=== PATIENT | male | born 1965 | race Caucasian/White ===

== ENCOUNTER 2017-12-12 04:55 | Inpatient (IN) | payer OTHER ==
[2017-12-12] VITALS (13 sets, daily range): BP systolic 117–156; BP diastolic 73–107
[~2017-12-12] VITALS: Ht 176.5 cm; Wt 76.7 kg
[2017-12-12 05:27] LABS: BASOPHILS % (AUTO) 0.8 % (0-1); EOSINOPHILS % (AUTO) 0.4 % (0-6); HEMATOCRIT 45.6 % (42.0-52.0); LYMPHOCYTES # (AUTO) 0.7 X10'3 (1.1-4.8); LYMPHOCYTES % (AUTO) 12.8 % (21-51); MEAN CORPUSCULAR HEMOGLOBIN 31.4 PG (27.0-31.0); MEAN CORPUSCULAR HGB CONC 32.8 % (33.0-36.5); MEAN CORPUSCULAR VOLUME 95.6 FL (78-98); MEAN PLATELET VOLUME 8.1 FL (7.4-10.4); MONOCYTES # (AUTO) 0.4 X10'3 (0-0.9); MONOCYTES % (AUTO) 7.9 % (2-12); NEUTROPHILS # (AUTO) 4.5 X10'3 (1.8-7.7); NEUTROPHILS % (AUTO) 78.1 % (42-75); PLATELET COUNT 155 X10'3 (140-440); RED BLOOD COUNT 4.77 X10'6 (4.70-6.10); WHITE BLOOD COUNT 5.6 X10'3 (4.5-11.0)
[2017-12-12 05:37] LABS: ALANINE AMINOTRANSFERASE 49 U/L (12-78); ALBUMIN 4.3 G/DL (3.4-5.0); ALBUMIN/GLOBULIN RATIO 1.2 (1.1-1.5); ALKALINE PHOSPHATASE 90 IU/L (46-116); ANION GAP 11 (8-16); ASPARTATE AMINO TRANSFERASE 58 U/L (10-37); BILIRUBIN,TOTAL 0.7 MG/DL (0.1-1.0); BLOOD UREA NITROGEN 11 MG/DL (7-18); BUN/CREATININE RATIO 10.8 (5.4-32.0); CALCIUM 8.8 MG/DL (8.5-10.1); CHLORIDE 100 MMOL/L (99-107); CREATININE 1.02 MG/DL (0.60-1.10); GLUCOSE 117 MG/DL (70-104); POTASSIUM 3.7 MMOL/L (3.5-5.1); SODIUM 138 MMOL/L (135-145); TOTAL CARBON DIOXIDE 27.5 MMOL/L (24-32); TOTAL PROTEIN 7.8 G/DL (6.4-8.2); eGFR 76 ML/MIN
[2017-12-12 05:40] LABS: PARTIAL THROMBOPLASTIN TIME 30 SECONDS (22-32); PROTHROMBIN TIME 10.5 SECONDS (9.0-12.0)
[2017-12-12] MEDS ORDERED: heparin 10,000 units/1 ML INJ IV ONE (05:45)
[2017-12-12] MEDS ORDERED: SULF500T PO (06:42)
[2017-12-12] MEDS ORDERED: MERC50TA16 CORPAK (06:42)
[2017-12-12] MEDS ORDERED: OMEP40CA37 PO (06:42)
[2017-12-12] MEDS ORDERED: morphine 4 MG/ML inj SYRINge IV PRN (06:55)
[2017-12-12] MEDS ORDERED: acetaminophen 325mg tablet PO PRN (06:55)
[2017-12-12] MEDS ORDERED: bisacodyl 10mg suppository rectal RC PRN (06:55)
[2017-12-12 07:10] LABS: TROPONIN I 12.98 NG/ML (0.0-0.05)
[2017-12-12] MEDS ORDERED: heparin, porcine/D5W 25,000 units/250ml premix IV ONE (08:00)
[2017-12-12] MEDS ORDERED: heparin 10,000 units/1 ML INJ ONE (08:00)
[2017-12-12] MEDS ORDERED: nitroGLYCERIN 0.4mg SUBLingual tab SL ONE (08:00)
[2017-12-12] MEDS: tirofiban 5mg in NS 100mL 100 ML IV SCH ×2 (08:26→13:41)
[2017-12-12] MEDS: metoprolol tartrate 25mg tablet PO SCH ×2 (08:26→20:00)
[2017-12-12] MEDS: pantoprazole 40mg Tablet.DR PO SCH (08:27)
[2017-12-12 08:30] LABS: CHOL/HDL RATIO 4.4 (0.00-4.99); CHOLESTEROL 207 MG/DL (0-200); HDL CHOLESTEROL 47 MG/DL (35-60); LDL CHOLESTEROL 153 MG/DL (50-100); TRIGLYCERIDES 52 MG/DL (20-135)
[2017-12-12] MEDS: nitroGLYCERIN 0.4mg SUBLingual tab SL PRN ×3 (08:42→13:38)
[2017-12-12] MEDS ORDERED: midazolam 2 mg/2 ml injection ONE (13:48)
[2017-12-12] MEDS ORDERED: iohexol 350 MG/1 ML 200ml bottle ONE (13:49)
[2017-12-12] MEDS ORDERED: heparin 1,000unit/ml 10ml vial 10 ML ONE (13:49)
[2017-12-12] MEDS ORDERED: fentaNYL/PF 50MCG/1 ML 2ML syringe ONE (13:49)
[2017-12-12] MEDS ORDERED: LIDOcaine 1% w/EPI 1:100,000 30ml vial (MDV) ONE (13:49)
[2017-12-12] MEDS ORDERED: amLODIPine 5mg tablet PO ONE (15:45)
[2017-12-12] MEDS ORDERED: ondansetron/PF 4mg/2ml inj IV PRN (16:00)
[2017-12-12] MEDS ORDERED: proCHLORperazine 10 MG/2 ml inj IV PRN (16:00)
[2017-12-12] MEDS ORDERED: OXAZEpam 15mg capsule PO PRN (16:00)
[2017-12-12 16:58] LABS: BASOPHILS % (AUTO) 0.2 % (0-1); EOSINOPHILS % (AUTO) 0.1 % (0-6); HEMATOCRIT 44.2 % (42.0-52.0); HEMOGLOBIN 15.4 g/dl (14.0-17.9); LYMPHOCYTES # (AUTO) 0.8 X10'3 (1.1-4.8); LYMPHOCYTES % (AUTO) 8.7 % (21-51); MEAN CORPUSCULAR HEMOGLOBIN 32.6 PG (27.0-31.0); MEAN CORPUSCULAR HGB CONC 34.8 % (33.0-36.5); MEAN CORPUSCULAR VOLUME 93.9 FL (78-98); MEAN PLATELET VOLUME 8.1 FL (7.4-10.4); MONOCYTES # (AUTO) 0.9 X10'3 (0-0.9); MONOCYTES % (AUTO) 9.9 % (2-12); NEUTROPHILS # (AUTO) 7.4 X10'3 (1.8-7.7); NEUTROPHILS % (AUTO) 81.1 % (42-75); PLATELET COUNT 173 X10'3 (140-440); RED CELL DISTRIBUTION WIDTH 13.9 % (11.5-14.5); WHITE BLOOD COUNT 9.2 X10'3 (4.5-11.0)
[2017-12-12] MEDS: sulfaSALAZINE 500 MG tablet PO SCH (19:23)
[2017-12-12] MEDS: atorvastatin 20mg tablet PO SCH (20:31)
[2017-12-12] MEDS: heparin 10,000 units/1 ML INJ IV PRN (23:13)
[2017-12-13 03:00] VITALS: BP 122/79
[2017-12-13 04:43] LABS: BASOPHILS % (AUTO) 0.4 % (0-1); EOSINOPHILS % (AUTO) 0.7 % (0-6); HEMATOCRIT 41.9 % (42.0-52.0); HEMOGLOBIN 14.5 g/dl (14.0-17.9); LYMPHOCYTES # (AUTO) 1.3 X10'3 (1.1-4.8); LYMPHOCYTES % (AUTO) 20.1 % (21-51); MEAN CORPUSCULAR HEMOGLOBIN 32.5 PG (27.0-31.0); MEAN CORPUSCULAR HGB CONC 34.7 % (33.0-36.5); MEAN CORPUSCULAR VOLUME 93.6 FL (78-98); MEAN PLATELET VOLUME 7.9 FL (7.4-10.4); MONOCYTES # (AUTO) 0.8 X10'3 (0-0.9); MONOCYTES % (AUTO) 12.7 % (2-12); NEUTROPHILS # (AUTO) 4.2 X10'3 (1.8-7.7); NEUTROPHILS % (AUTO) 66.1 % (42-75); PLATELET COUNT 157 X10'3 (140-440); RED BLOOD COUNT 4.47 X10'6 (4.70-6.10); RED CELL DISTRIBUTION WIDTH 13.7 % (11.5-14.5); WHITE BLOOD COUNT 6.3 X10'3 (4.5-11.0)
[2017-12-13 05:04] LABS: ALANINE AMINOTRANSFERASE 64 U/L (12-78); ALBUMIN 3.8 G/DL (3.4-5.0); ALBUMIN/GLOBULIN RATIO 1.1 (1.1-1.5); ALKALINE PHOSPHATASE 74 IU/L (46-116); ANION GAP 8 (8-16); ASPARTATE AMINO TRANSFERASE 177 U/L (10-37); BILIRUBIN,TOTAL 0.6 MG/DL (0.1-1.0); BLOOD UREA NITROGEN 13 MG/DL (7-18); BUN/CREATININE RATIO 13.7 (5.4-32.0); CALCIUM 8.5 MG/DL (8.5-10.1); CHLORIDE 104 MMOL/L (99-107); CREATININE 0.95 MG/DL (0.60-1.10); GLUCOSE 102 MG/DL (70-104); MAGNESIUM 2.1 MG/DL (1.5-2.4); SODIUM 139 MMOL/L (135-145); TOTAL PROTEIN 7.2 G/DL (6.4-8.2); eGFR 83 ML/MIN
[2017-12-13 07:00] VITALS: BP 98/59
[2017-12-13] MEDS: aspirin 81mg tab.chew PO SCH (07:46)
[2017-12-13] MEDS: pantoprazole 40mg Tablet.DR PO SCH (07:46)
[2017-12-13] MEDS: sulfaSALAZINE 500 MG tablet PO SCH ×2 (07:46→22:08)
[2017-12-13] MEDS: metoprolol tartrate 25mg tablet PO SCH (07:50)
[2017-12-13 11:00] VITALS: BP 102/70
[2017-12-13 15:00] VITALS: BP 112/92
[2017-12-13 19:00] VITALS: BP 115/73
[2017-12-13] MEDS ORDERED: metoprolol tartrate 25mg tablet PO SCH (20:00)
[2017-12-13] MEDS: atorvastatin 20mg tablet PO SCH (22:08)
[2017-12-13] MEDS: metoprolol tartrate 12.5mg (1/2 tablet) PO SCH (22:09)
[2017-12-13 23:00] VITALS: BP 111/73
[2017-12-14 03:00] VITALS: BP 103/74
[2017-12-14 05:54] LABS: BASOPHILS % (AUTO) 0.4 % (0-1); EOSINOPHILS % (AUTO) 0.3 % (0-6); HEMATOCRIT 42.6 % (42.0-52.0); HEMOGLOBIN 14.7 g/dl (14.0-17.9); LYMPHOCYTES # (AUTO) 1.1 X10'3 (1.1-4.8); MEAN CORPUSCULAR HEMOGLOBIN 32.5 PG (27.0-31.0); MEAN CORPUSCULAR HGB CONC 34.5 % (33.0-36.5); MEAN CORPUSCULAR VOLUME 94.2 FL (78-98); MEAN PLATELET VOLUME 7.7 FL (7.4-10.4); MONOCYTES # (AUTO) 0.8 X10'3 (0-0.9); NEUTROPHILS # (AUTO) 3.3 X10'3 (1.8-7.7); NEUTROPHILS % (AUTO) 63.3 % (42-75); PLATELET COUNT 142 X10'3 (140-440); RED BLOOD COUNT 4.53 X10'6 (4.70-6.10); RED CELL DISTRIBUTION WIDTH 13.8 % (11.5-14.5); WHITE BLOOD COUNT 5.2 X10'3 (4.5-11.0)
[2017-12-14 06:06] LABS: ALANINE AMINOTRANSFERASE 51 U/L (12-78); ALBUMIN 3.7 G/DL (3.4-5.0); ALBUMIN/GLOBULIN RATIO 1.1 (1.1-1.5); ALKALINE PHOSPHATASE 70 IU/L (46-116); ANION GAP 8 (8-16); ASPARTATE AMINO TRANSFERASE 79 U/L (10-37); BILIRUBIN,TOTAL 0.6 MG/DL (0.1-1.0); BLOOD UREA NITROGEN 14 MG/DL (7-18); BUN/CREATININE RATIO 13.6 (5.4-32.0); CALCIUM 8.9 MG/DL (8.5-10.1); CHLORIDE 104 MMOL/L (99-107); CREATININE 1.03 MG/DL (0.60-1.10); GLUCOSE 90 MG/DL (70-104); SODIUM 140 MMOL/L (135-145); TOTAL PROTEIN 7.2 G/DL (6.4-8.2); eGFR 76 ML/MIN
[2017-12-14 06:07] LABS: POTASSIUM 3.8 MMOL/L (3.5-5.1)
[2017-12-14 06:08] LABS: MAGNESIUM 2.1 MG/DL (1.5-2.4)
[2017-12-14 06:11] LABS: TROPONIN I 14.79 NG/ML (0.0-0.05)
[2017-12-14 06:49] VITALS: BP 116/76
[2017-12-14] MEDS: metoprolol tartrate 12.5mg (1/2 tablet) PO SCH ×2 (08:00→19:42)
[2017-12-14] MEDS: aspirin 81mg tab.chew PO SCH (08:17)
[2017-12-14] MEDS: pantoprazole 40mg Tablet.DR PO SCH (08:17)
[2017-12-14] MEDS: sulfaSALAZINE 500 MG tablet PO SCH ×2 (08:17→19:35)
[2017-12-14 11:00] VITALS: BP 123/78
[2017-12-14 15:00] VITALS: BP 112/75
[2017-12-14 19:00] VITALS: BP 122/76
[2017-12-14] MEDS: atorvastatin 20mg tablet PO SCH (21:21)
[2017-12-14 23:00] VITALS: BP 122/84
[2017-12-15] MEDS: heparin 10,000 units/1 ML INJ IV PRN (00:39)
[2017-12-15 03:00] VITALS: BP 142/87
[2017-12-15 07:00] VITALS: BP 136/80
[2017-12-15 07:17] LABS: BASOPHILS % (AUTO) 0.4 % (0-1); EOSINOPHILS # (AUTO) 0.1 X10'3 (0-0.9); HEMOGLOBIN 14.6 g/dl (14.0-17.9); LYMPHOCYTES # (AUTO) 1.1 X10'3 (1.1-4.8); LYMPHOCYTES % (AUTO) 20.8 % (21-51); MEAN CORPUSCULAR HEMOGLOBIN 32.6 PG (27.0-31.0); MEAN CORPUSCULAR HGB CONC 34.7 % (33.0-36.5); MEAN PLATELET VOLUME 7.7 FL (7.4-10.4); MONOCYTES # (AUTO) 0.7 X10'3 (0-0.9); MONOCYTES % (AUTO) 13.5 % (2-12); NEUTROPHILS # (AUTO) 3.4 X10'3 (1.8-7.7); NEUTROPHILS % (AUTO) 64.3 % (42-75); PLATELET COUNT 155 X10'3 (140-440); RED BLOOD COUNT 4.47 X10'6 (4.70-6.10); WHITE BLOOD COUNT 5.2 X10'3 (4.5-11.0)
[2017-12-15 07:32] LABS: ALANINE AMINOTRANSFERASE 51 U/L (12-78); ALBUMIN 3.8 G/DL (3.4-5.0); ALBUMIN/GLOBULIN RATIO 1.1 (1.1-1.5); ALKALINE PHOSPHATASE 71 IU/L (46-116); ANION GAP 8 (8-16); ASPARTATE AMINO TRANSFERASE 54 U/L (10-37); BILIRUBIN,TOTAL 0.6 MG/DL (0.1-1.0); BLOOD UREA NITROGEN 11 MG/DL (7-18); BUN/CREATININE RATIO 11.2 (5.4-32.0); CALCIUM 9.5 MG/DL (8.5-10.1); CHLORIDE 102 MMOL/L (99-107); CREATININE 0.98 MG/DL (0.60-1.10); GLUCOSE 102 MG/DL (70-104); SODIUM 138 MMOL/L (135-145); TOTAL CARBON DIOXIDE 27.6 MMOL/L (24-32); TOTAL PROTEIN 7.4 G/DL (6.4-8.2); eGFR 80 ML/MIN
[2017-12-15 07:53] LABS: TROPONIN I 10.49 NG/ML (0.0-0.05)
[2017-12-15] MEDS: metoprolol tartrate 12.5mg (1/2 tablet) PO SCH ×2 (08:00→20:00)
[2017-12-15] MEDS: pantoprazole 40mg Tablet.DR PO SCH (08:31)
[2017-12-15] MEDS: aspirin 81mg tab.chew PO SCH (08:31)
[2017-12-15] MEDS: sulfaSALAZINE 500 MG tablet PO SCH ×2 (08:32→19:46)
[2017-12-15] MEDS ORDERED: dextrose 50%-water 50ml dispensing syringe IV PRN (09:25)
[2017-12-15] MEDS ORDERED: MESSAGE TO NURSING PO ONE ×5 (09:25→10:00)
[2017-12-15 10:09] LABS: PARTIAL THROMBOPLASTIN TIME 36 SECONDS (22-32); PROTHROMBIN TIME 10.3 SECONDS (9.0-12.0)
[2017-12-15 10:36] LABS: ABG HCO3 27.8 mmol/L (22.0-26.0); ABG OXYGEN SATURATION 95.6 % (95-98); ABG PH (T) 7.428 (7.350-7.450); ALLEN'S TEST Positive; FCOHb 0.8 % (0.5-1.5); FMetHb 0.5 % (0.3-1.12); FO2Hb 94.4 % (94-100); TOTAL HEMOGLOBIN 15.2 G/dl (14.0-18.0)
[2017-12-15] MEDS ORDERED: ringers solution, lacted 1,000 ML IV ONE (11:18)
[2017-12-15] MEDS: insulin Lispro (HumaLOG) vial - multi-dose SQ SCH ×2 (12:35→18:00)
[2017-12-15 15:00] VITALS: BP 138/87
[2017-12-15 19:00] VITALS: BP 134/84
[2017-12-15] MEDS: lactobacillus rhamnosus 10,000 MMU CELLS/CAPSULE PO SCH (19:46)
[2017-12-15] MEDS: mupirocin 2% nasal ointment 1gm UD NS SCH (19:53)
[2017-12-15] MEDS: atorvastatin 20mg tablet PO SCH (20:20)
[2017-12-15 23:00] VITALS: BP 130/87
[2017-12-16] VITALS (14 sets, daily range): BP systolic 100–142; BP diastolic 61–87
[2017-12-16] MEDS ORDERED: vancomycin/NS 1 GM ADD-VANTAGE 250 ML IV ONE (06:00)
[2017-12-16] MEDS ORDERED: famotidine 20mg tablet PO ONE (06:00)
[2017-12-16] MEDS ORDERED: LORazepam 2 mg/ml vial IV ONE (06:00)
[2017-12-16 06:16] LABS: BASOPHILS % (AUTO) 0.4 % (0-1); EOSINOPHILS % (AUTO) 0.9 % (0-6); HEMATOCRIT 42.4 % (42.0-52.0); HEMOGLOBIN 14.8 g/dl (14.0-17.9); LYMPHOCYTES # (AUTO) 0.9 X10'3 (1.1-4.8); LYMPHOCYTES % (AUTO) 21.8 % (21-51); MEAN CORPUSCULAR HEMOGLOBIN 32.7 PG (27.0-31.0); MEAN CORPUSCULAR HGB CONC 34.8 % (33.0-36.5); MONOCYTES # (AUTO) 0.6 X10'3 (0-0.9); MONOCYTES % (AUTO) 14.8 % (2-12); NEUTROPHILS # (AUTO) 2.7 X10'3 (1.8-7.7); NEUTROPHILS % (AUTO) 62.1 % (42-75); PLATELET COUNT 160 X10'3 (140-440); RED BLOOD COUNT 4.51 X10'6 (4.70-6.10); RED CELL DISTRIBUTION WIDTH 14.1 % (11.5-14.5); WHITE BLOOD COUNT 4.3 X10'3 (4.5-11.0)
[2017-12-16 06:20] LABS: PROTHROMBIN TIME 10.4 SECONDS (9.0-12.0)
[2017-12-16 06:29] LABS: ANION GAP 9 (8-16); BLOOD UREA NITROGEN 11 MG/DL (7-18); CHLORIDE 101 MMOL/L (99-107); CREATININE 1.03 MG/DL (0.60-1.10); GLUCOSE 111 MG/DL (70-104); SODIUM 137 MMOL/L (135-145); TOTAL CARBON DIOXIDE 27.4 MMOL/L (24-32)
[2017-12-16 06:30] LABS: ALANINE AMINOTRANSFERASE 53 U/L (12-78); ALBUMIN/GLOBULIN RATIO 1.2 (1.1-1.5); ALKALINE PHOSPHATASE 74 IU/L (46-116); ASPARTATE AMINO TRANSFERASE 48 U/L (10-37); BILIRUBIN,TOTAL 0.8 MG/DL (0.1-1.0); BUN/CREATININE RATIO 10.7 (5.4-32.0); CALCIUM 9.4 MG/DL (8.5-10.1); TOTAL PROTEIN 7.4 G/DL (6.4-8.2); eGFR 76 ML/MIN
[2017-12-16] MEDS ORDERED: insulin regular, human inj. 100 UNITS in normal saline 100ml IV soln 100 ML IV SCH ×2 (06:30)
[2017-12-16] MEDS ORDERED: ceFAZolin 2gm in dextrose, iso 100 ML IV ONE (06:30)
[2017-12-16 06:32] LABS: MAGNESIUM 1.8 MG/DL (1.5-2.4)
[2017-12-16 06:37] LABS: POTASSIUM 3.6 MMOL/L (3.5-5.1)
[2017-12-16 06:42] LABS: TROPONIN I 8.05 NG/ML (0.0-0.05)
[2017-12-16] MEDS ORDERED: ceFAZolin 1000mg inj ONE (07:26)
[2017-12-16] MEDS ORDERED: heparin 1,000 units/ml 10ml inj ONE (08:00)
[2017-12-16] MEDS: metoprolol tartrate 12.5mg (1/2 tablet) PO SCH (08:00)
[2017-12-16] MEDS: mupirocin 2% nasal ointment 1gm UD NS SCH ×2 (08:02→19:50)
[2017-12-16] MEDS: pantoprazole 40mg Tablet.DR PO SCH (08:03)
[2017-12-16] MEDS: sulfaSALAZINE 500 MG tablet PO SCH (08:03)
[2017-12-16] MEDS: lactobacillus rhamnosus 10,000 MMU CELLS/CAPSULE PO SCH (08:03)
[2017-12-16] MEDS ORDERED: epiNEPHrine 1 mg/ml inj ONE ×2 (08:08→08:15)
[2017-12-16] MEDS ORDERED: LIDOcaine 1% 30ml preserv. free vial ONE (08:08)
[2017-12-16] MEDS ORDERED: ROPIVAcaine 0.5% (5mg/ml) 30ml vial ONE (08:08)
[2017-12-16] MEDS ORDERED: heparin 10,000 units/1 ML INJ ONE (08:08)
[2017-12-16 08:11] LABS: HEMOGLOBIN A1C 4.3 % (4.5-6.2)
[2017-12-16] MEDS: aspirin 81mg tab.chew PO SCH (08:30)
[2017-12-16] MEDS ORDERED: SUFENTANIL CITRATE 50 MCG/ML 2ml ampule IV ONE (09:36)
[2017-12-16] MEDS ORDERED: LORazepam 2 mg/ml vial ONE (10:11)
[2017-12-16] MEDS ORDERED: DOPamine/D5W 400mg/250ml bag IV ONE (11:01)
[2017-12-16] MEDS ORDERED: isoflurane 100ml inhalation liquid IH ONE (11:01)
[2017-12-16] MEDS ORDERED: nitroGLYCERIN in D5W 50mg/250ml (Tridil) infusion IV ONE (11:01)
[2017-12-16] MEDS ORDERED: LIDOcaine 2% (20mg/ml) 5ml vial ONE (11:11)
[2017-12-16] MEDS ORDERED: propofol inj 20 ML IV ONE (11:11)
[2017-12-16] MEDS ORDERED: rocuronium 10mg/ml inj IV ONE (11:11)
[2017-12-16] MEDS ORDERED: pancuronium br 1mg/ml inj IV ONE (11:11)
[2017-12-16 11:46] LABS: ABG BASE EXCESS 0.5 mmol/L (-2.0-3.0); ABG OXYGEN SATURATION 99.5 % (95-98); ABG PCO2 27.3 mmHg (35.0-45.0); ABG PH 7.524 (7.350-7.450); CL (ABG) 104 mmol/L (99-107); FCOHb 0.4 % (0.5-1.5); FMetHb 0.8 % (0.3-1.12); FO2Hb 98.3 % (94-100); GLUCOSE (ABG) 101 mg/dl (70-105); IONIZED CA (ABG) 1.13 mmol/L (1.03-1.32); NA (ABG) 125 mmol/L (135-145); TOTAL HEMOGLOBIN 13.6 G/dl (14.0-18.0)
[2017-12-16] MEDS ORDERED: papaverine 30 mg/ml 2ml inj. IA ONE (12:18)
[2017-12-16] MEDS ORDERED: heparin 10,000 units/1 ML INJ IR ONE (12:20)
[2017-12-16 12:30] LABS: ABG BASE EXCESS -0.5 mmol/L (-2.0-3.0); ABG HCO3 23.1 mmol/L (22.0-26.0); ABG OXYGEN SATURATION 98.9 % (95-98); ABG PCO2 34.6 mmHg (35.0-45.0); ABG PH 7.442 (7.350-7.450); ABG PO2 178.4 mmHg (60.0-100.0); CL (ABG) 104 mmol/L (99-107); FCOHb 0.6 % (0.5-1.5); FMetHb 0.4 % (0.3-1.12); FO2Hb 97.9 % (94-100); GLUCOSE (ABG) 99 mg/dl (70-105); K (ABG) 4.3 mmol/L (3.3-5.1); NA (ABG) 124 mmol/L (135-145); TOTAL HEMOGLOBIN 12.5 G/dl (14.0-18.0)
[2017-12-16] MEDS ORDERED: albumin (Human) 5% 250ml 250 ML IV ONE ×2 (12:56)
[2017-12-16 13:56] LABS: ABG BASE EXCESS -1.2 mmol/L (-2.0-3.0); ABG HCO3 22.1 mmol/L (22.0-26.0); ABG OXYGEN SATURATION 98.6 % (95-98); ABG PCO2 32.4 mmHg (35.0-45.0); ABG PH 7.452 (7.350-7.450); ABG PO2 148.8 mmHg (60.0-100.0); CL (ABG) 106 mmol/L (99-107); FCOHb 0.6 % (0.5-1.5); FMetHb 0.3 % (0.3-1.12); FO2Hb 97.7 % (94-100); GLUCOSE (ABG) 107 mg/dl (70-105); IONIZED CA (ABG) 1.05 mmol/L (1.03-1.32); NA (ABG) 124 mmol/L (135-145); TOTAL HEMOGLOBIN 11.2 G/dl (14.0-18.0)
[2017-12-16] MEDS ORDERED: metoclopramide 5 mg/ml inj IV PRN (14:05)
[2017-12-16] MEDS ORDERED: niCARDipine/sod cl 20mg/200ml 200 ML IV PRN (14:05)
[2017-12-16] MEDS: insulin regular, human inj. 100 UNITS in normal saline 100ml IV soln 100 ML IV SCH ×2 (14:05)
[2017-12-16] MEDS ORDERED: potassium Cl 20mEq/100mL bag 100 ML IV PRN ×3 (14:05)
[2017-12-16] MEDS ORDERED: sodium chloride 0.45% 1,000 ML IV SCH (14:05)
[2017-12-16] MEDS ORDERED: magnesium 4gm in 100ml NS 100 ML IV PRN (14:05)
[2017-12-16] MEDS ORDERED: sodium phosphate inj. 15 MMOL in dextrose 5%-water 150 ML IV PRN (14:05)
[2017-12-16] MEDS ORDERED: sodium phosphate inj. 30 MMOL in dextrose 5%-water 250 ML IV PRN (14:05)
[2017-12-16] MEDS ORDERED: Neutra Phos packet PO PRN (14:05)
[2017-12-16] MEDS ORDERED: morphine 4 MG/ML inj SYRINge IV PRN (14:05)
[2017-12-16] MEDS ORDERED: magnesium hydroxide 30ml (MOM) UD suspension PO PRN (14:05)
[2017-12-16] MEDS ORDERED: acetaminophen 325mg tablet PO PRN (14:05)
[2017-12-16] MEDS ORDERED: ondansetron/PF 4mg/2ml inj IV PRN (14:05)
[2017-12-16] MEDS ORDERED: nitroGLYCERIN-Tridil 50MG/D5W 250 ML IV PRN (14:05)
[2017-12-16] MEDS ORDERED: dextrose 50%-water 50ml dispensing syringe IV PRN (14:05)
[2017-12-16] MEDS: albumin (Human) 5% 250ml 250 ML IV PRN ×3 (14:50→16:30)
[2017-12-16] MEDS: morphine 4 MG/ML inj SYRINge IV PRN ×4 (14:51→23:25)
[2017-12-16 14:56] LABS: ABG BASE EXCESS -0.4 mmol/L (-2.0-3.0); ABG HCO3 23.3 mmol/L (22.0-26.0); ABG OXYGEN SATURATION 99.1 % (95-98); ABG PCO2 (T) 33.4 mmHg (35.0-48.0); ABG PH (T) 7.457 (7.350-7.450); ABG PO2 (T) 319.5 mmHg (83-108); FCOHb 0.3 % (0.5-1.5); FMetHb 0.1 % (0.3-1.12); FO2Hb 98.7 % (94-100); MINUTE VOLUME 9 L/min; PEEP 5 cm H2O; RESPIRATORY RATE 12 b/min; RESPIRATORY RATE (OBSERVED) 14 b/min; TIDAL VOLUME 650 mL; TOTAL HEMOGLOBIN 12.6 G/dl (14.0-18.0)
[2017-12-16 15:02] LABS: BASOPHILS # (AUTO) 0.1 X10'3 (0-0.2); BASOPHILS % (AUTO) 0.4 % (0-1); EOSINOPHILS % (AUTO) 0.4 % (0-6); HEMATOCRIT 33.7 % (42.0-52.0); HEMOGLOBIN 11.6 g/dl (14.0-17.9); LYMPHOCYTES # (AUTO) 1.6 X10'3 (1.1-4.8); LYMPHOCYTES % (AUTO) 14.1 % (21-51); MEAN CORPUSCULAR HEMOGLOBIN 32.5 PG (27.0-31.0); MEAN CORPUSCULAR HGB CONC 34.5 % (33.0-36.5); MEAN CORPUSCULAR VOLUME 94.3 FL (78-98); MEAN PLATELET VOLUME 7.5 FL (7.4-10.4); MONOCYTES # (AUTO) 1.2 X10'3 (0-0.9); MONOCYTES % (AUTO) 10.1 % (2-12); NEUTROPHILS # (AUTO) 8.6 X10'3 (1.8-7.7); PLATELET COUNT 138 X10'3 (140-440); RED BLOOD COUNT 3.57 X10'6 (4.70-6.10); RED CELL DISTRIBUTION WIDTH 13.8 % (11.5-14.5); WHITE BLOOD COUNT 11.5 X10'3 (4.5-11.0)
[2017-12-16 15:11] LABS: INR 1.2 INR; PARTIAL THROMBOPLASTIN TIME 32 SECONDS (22-32); PROTHROMBIN TIME 12.1 SECONDS (9.0-12.0)
[2017-12-16 15:16] LABS: ALANINE AMINOTRANSFERASE 33 U/L (12-78); ALBUMIN 3.1 G/DL (3.4-5.0); ALBUMIN/GLOBULIN RATIO 1.4 (1.1-1.5); ALKALINE PHOSPHATASE 46 IU/L (46-116); ANION GAP 8 (8-16); ASPARTATE AMINO TRANSFERASE 32 U/L (10-37); BILIRUBIN,TOTAL 0.9 MG/DL (0.1-1.0); BLOOD UREA NITROGEN 12 MG/DL (7-18); CALCIUM 7.3 MG/DL (8.5-10.1); CHLORIDE 107 MMOL/L (99-107); CREATININE 0.86 MG/DL (0.60-1.10); GLUCOSE 114 MG/DL (70-104); MAGNESIUM 1.4 MG/DL (1.5-2.4); PHOSPHORUS 2.8 MG/DL (2.3-4.5); SODIUM 139 MMOL/L (135-145); TOTAL CARBON DIOXIDE 24.3 MMOL/L (24-32); TOTAL PROTEIN 5.3 G/DL (6.4-8.2); eGFR > 90 ML/MIN
[2017-12-16] MEDS: ketorolac tromethamine 15mg/ml inj. IV SCH ×2 (15:58→19:49)
[2017-12-16] MEDS: ceFAZolin 2gm in dextrose, iso 100 ML IV SCH ×2 (16:16→23:24)
[2017-12-16] MEDS: magnesium 1gm/100ml D5W IVPB 100 ML IV PRN (16:50)
[2017-12-16] MEDS: insulin Lispro (HumaLOG) vial - multi-dose SQ SCH (17:21)
[2017-12-16 17:30] LABS: ABG BASE EXCESS -7.4 mmol/L (-2.0-3.0); ABG HCO3 17.7 mmol/L (22.0-26.0); ABG OXYGEN SATURATION 97.4 % (95-98); ABG PCO2 (T) 33.6 mmHg (35.0-48.0); ABG PH (T) 7.338 (7.350-7.450); FCOHb 0.3 % (0.5-1.5); FMetHb 0.5 % (0.3-1.12); FO2Hb 96.6 % (94-100); MINUTE VOLUME 8 L/min; PATIENT TEMPERATURE 36.7; PEEP 5 cm H2O; RESPIRATORY RATE (OBSERVED) 12 b/min; TOTAL HEMOGLOBIN 9.9 G/dl (14.0-18.0)
[2017-12-16] MEDS: HYDROcodone/acetaminophen 10/325mg tab PO PRN (19:41)
[2017-12-16] MEDS: docusate sod 100mg capsule PO SCH (19:41)
[2017-12-16] MEDS: vancomycin/NS 1 GM ADD-VANTAGE 250 ML IV SCH (19:50)
[2017-12-17] VITALS (23 sets, daily range): BP systolic 102–137; BP diastolic 65–83
[2017-12-17] MEDS: morphine 4 MG/ML inj SYRINge IV PRN ×5 (01:35→20:02)
[2017-12-17] MEDS: ketorolac tromethamine 15mg/ml inj. IV SCH ×2 (01:35→06:49)
[2017-12-17 02:30] LABS: PARTIAL THROMBOPLASTIN TIME 37 SECONDS (22-32)
[2017-12-17 02:32] LABS: ALBUMIN 3.4 G/DL (3.4-5.0); ANION GAP 6 (8-16); BASOPHILS % (AUTO) 0 % (0-1); BLOOD UREA NITROGEN 11 MG/DL (7-18); BUN/CREATININE RATIO 12.2 (5.4-32.0); CALCIUM 7.7 MG/DL (8.5-10.1); CHLORIDE 101 MMOL/L (99-107); EOSINOPHILS % (AUTO) 0 % (0-6); GLUCOSE 112 MG/DL (70-104); HEMATOCRIT 31.9 % (42.0-52.0); HEMOGLOBIN 10.9 g/dl (14.0-17.9); LYMPHOCYTES # (AUTO) 0.5 X10'3 (1.1-4.8); MEAN CORPUSCULAR HEMOGLOBIN 32.4 PG (27.0-31.0); MEAN CORPUSCULAR HGB CONC 34.3 % (33.0-36.5); MEAN CORPUSCULAR VOLUME 94.5 FL (78-98); MEAN PLATELET VOLUME 7.8 FL (7.4-10.4); MONOCYTES % (AUTO) 10.2 % (2-12); NEUTROPHILS # (AUTO) 8.7 X10'3 (1.8-7.7); NEUTROPHILS % (AUTO) 84.8 % (42-75); PHOSPHORUS 3.2 MG/DL (2.3-4.5); PLATELET COUNT 154 X10'3 (140-440); POTASSIUM 4.6 MMOL/L (3.5-5.1); RED BLOOD COUNT 3.38 X10'6 (4.70-6.10); RED CELL DISTRIBUTION WIDTH 13.9 % (11.5-14.5); SODIUM 131 MMOL/L (135-145); TOTAL CARBON DIOXIDE 24.4 MMOL/L (24-32); WHITE BLOOD COUNT 10.3 X10'3 (4.5-11.0); eGFR 88 ML/MIN
[2017-12-17 02:39] LABS: MAGNESIUM 2.8 MG/DL (1.5-2.4)
[2017-12-17] MEDS: HYDROcodone/acetaminophen 10/325mg tab PO PRN ×3 (06:48→17:19)
[2017-12-17] MEDS: pantoprazole 40mg Tablet.DR PO SCH (06:49)
[2017-12-17] MEDS: ceFAZolin 2gm in dextrose, iso 100 ML IV SCH ×2 (08:20→17:48)
[2017-12-17] MEDS: vancomycin/NS 1 GM ADD-VANTAGE 250 ML IV SCH ×2 (08:20→20:01)
[2017-12-17] MEDS: docusate sod 100mg capsule PO SCH ×2 (08:21→20:00)
[2017-12-17] MEDS: mupirocin 2% nasal ointment 1gm UD NS SCH ×2 (08:21→20:01)
[2017-12-17] MEDS: aspirin 325mg tablet, delayed-release (Ecotrin) PO SCH (08:26)
[2017-12-17] MEDS: atorvastatin 10mg tablet PO SCH (08:26)
[2017-12-17] MEDS: metoprolol tartrate 12.5mg (1/2 tablet) PO SCH ×2 (08:27→20:00)
[2017-12-17] MEDS: sulfaSALAZINE 500 MG tablet PO SCH ×3 (08:31→20:01)
[2017-12-17] MEDS: insulin Lispro (HumaLOG) vial - multi-dose SQ SCH ×3 (09:00→18:00)
[2017-12-17] MEDS: albumin (Human) 5% 250ml 250 ML IV PRN (10:59)
[2017-12-17] MEDS: Protein Shake (high protein) 240ml (8oz) cup PO SCH ×2 (13:00→18:00)
[2017-12-17] MEDS: insulin regular, human inj. 100 UNITS in normal saline 100ml IV soln 100 ML IV SCH ×2 (14:05)
[2017-12-17] MEDS: lactobacillus rhamnosus 10,000 MMU CELLS/CAPSULE PO SCH (20:00)
[2017-12-18] VITALS (17 sets, daily range): BP systolic 92–138; BP diastolic 52–83
[2017-12-18] MEDS: ceFAZolin 2gm in dextrose, iso 100 ML IV SCH (00:43)
[2017-12-18] MEDS: morphine 4 MG/ML inj SYRINge IV PRN ×2 (00:44→08:18)
[2017-12-18] MEDS: HYDROcodone/acetaminophen 10/325mg tab PO PRN ×4 (02:56→20:22)
[2017-12-18 05:09] LABS: BASOPHILS % (AUTO) 0.2 % (0-1); EOSINOPHILS # (AUTO) 0.1 X10'3 (0-0.9); EOSINOPHILS % (AUTO) 1.2 % (0-6); HEMATOCRIT 30.2 % (42.0-52.0); HEMOGLOBIN 10.4 g/dl (14.0-17.9); LYMPHOCYTES # (AUTO) 0.8 X10'3 (1.1-4.8); LYMPHOCYTES % (AUTO) 10.4 % (21-51); MEAN CORPUSCULAR HEMOGLOBIN 32.8 PG (27.0-31.0); MEAN CORPUSCULAR HGB CONC 34.3 % (33.0-36.5); MEAN CORPUSCULAR VOLUME 95.7 FL (78-98); MEAN PLATELET VOLUME 7.7 FL (7.4-10.4); MONOCYTES # (AUTO) 1.2 X10'3 (0-0.9); MONOCYTES % (AUTO) 15.6 % (2-12); NEUTROPHILS # (AUTO) 5.5 X10'3 (1.8-7.7); NEUTROPHILS % (AUTO) 72.6 % (42-75); PLATELET COUNT 145 X10'3 (140-440); RED BLOOD COUNT 3.16 X10'6 (4.70-6.10); RED CELL DISTRIBUTION WIDTH 14.3 % (11.5-14.5); WHITE BLOOD COUNT 7.6 X10'3 (4.5-11.0)
[2017-12-18 05:24] LABS: ALANINE AMINOTRANSFERASE 24 U/L (12-78); ALBUMIN/GLOBULIN RATIO 1.1 (1.1-1.5); ALKALINE PHOSPHATASE 45 IU/L (46-116); ANION GAP 7 (8-16); ASPARTATE AMINO TRANSFERASE 30 U/L (10-37); BILIRUBIN,TOTAL 0.4 MG/DL (0.1-1.0); BLOOD UREA NITROGEN 14 MG/DL (7-18); BUN/CREATININE RATIO 15.6 (5.4-32.0); CALCIUM 7.8 MG/DL (8.5-10.1); CHLORIDE 101 MMOL/L (99-107); GLUCOSE 125 MG/DL (70-104); PHOSPHORUS 2.5 MG/DL (2.3-4.5); POTASSIUM 4.3 MMOL/L (3.5-5.1); SODIUM 135 MMOL/L (135-145); TOTAL CARBON DIOXIDE 26.7 MMOL/L (24-32); TOTAL PROTEIN 5.7 G/DL (6.4-8.2); eGFR 88 ML/MIN
[2017-12-18 05:51] LABS: MAGNESIUM 2.1 MG/DL (1.5-2.4)
[2017-12-18] MEDS: sulfaSALAZINE 500 MG tablet PO SCH ×2 (07:33→20:18)
[2017-12-18] MEDS: aspirin 325mg tablet, delayed-release (Ecotrin) PO SCH (07:34)
[2017-12-18] MEDS: metoprolol tartrate 12.5mg (1/2 tablet) PO SCH (07:34)
[2017-12-18] MEDS: lactobacillus rhamnosus 10,000 MMU CELLS/CAPSULE PO SCH ×2 (07:34→20:18)
[2017-12-18] MEDS: pantoprazole 40mg Tablet.DR PO SCH (07:34)
[2017-12-18] MEDS: atorvastatin 10mg tablet PO SCH (07:34)
[2017-12-18] MEDS: docusate sod 100mg capsule PO SCH ×2 (07:34→20:18)
[2017-12-18] MEDS: mupirocin 2% nasal ointment 1gm UD NS SCH (07:37)
[2017-12-18] MEDS: Protein Shake (high protein) 240ml (8oz) cup PO SCH ×3 (08:00→18:45)
[2017-12-18] MEDS: insulin Lispro (HumaLOG) vial - multi-dose SQ SCH (09:00)
[2017-12-18] MEDS ORDERED: magnesium Cl slow-release 64mg tablet PO PRN (11:30)
[2017-12-18] MEDS ORDERED: potassium Cl 40MEQ/NS 500ml 500 ML IV PRN ×2 (11:30)
[2017-12-18] MEDS ORDERED: magnesium 1gm/100ml D5W IVPB 50 ML IV PRN (11:30)
[2017-12-18] MEDS ORDERED: potassium Cl 20 mEq SR tablet PO PRN ×2 (11:30)
[2017-12-18] MEDS ORDERED: magnesium 4gm in 100ml NS 100 ML IV PRN (11:30)
[2017-12-18] MEDS: potassium Cl 20 mEq SR tablet PO SCH (19:18)
[2017-12-18] MEDS: magnesium Cl slow-release 64mg tablet PO SCH (19:18)
[2017-12-18] MEDS: metoprolol tartrate 25mg tablet PO SCH (20:18)
[2017-12-18] MEDS: ketorolac trometh. 30mg/ml inj. IV PRN (21:34)
[2017-12-19] MEDS: HYDROcodone/acetaminophen 10/325mg tab PO PRN ×4 (02:50→20:08)
[2017-12-19 03:00] VITALS: BP 106/64
[2017-12-19 05:32] LABS: BASOPHILS % (AUTO) 0.3 % (0-1); EOSINOPHILS % (AUTO) 0.5 % (0-6); HEMATOCRIT 28.4 % (42.0-52.0); HEMOGLOBIN 9.8 g/dl (14.0-17.9); LYMPHOCYTES # (AUTO) 0.6 X10'3 (1.1-4.8); LYMPHOCYTES % (AUTO) 8.7 % (21-51); MEAN CORPUSCULAR HEMOGLOBIN 32.6 PG (27.0-31.0); MEAN CORPUSCULAR HGB CONC 34.6 % (33.0-36.5); MEAN CORPUSCULAR VOLUME 94.4 FL (78-98); MEAN PLATELET VOLUME 7.6 FL (7.4-10.4); MONOCYTES # (AUTO) 0.9 X10'3 (0-0.9); MONOCYTES % (AUTO) 11.9 % (2-12); NEUTROPHILS # (AUTO) 5.9 X10'3 (1.8-7.7); NEUTROPHILS % (AUTO) 78.6 % (42-75); PLATELET COUNT 150 X10'3 (140-440); RED BLOOD COUNT 3.01 X10'6 (4.70-6.10); RED CELL DISTRIBUTION WIDTH 14.3 % (11.5-14.5); WHITE BLOOD COUNT 7.5 X10'3 (4.5-11.0)
[2017-12-19 05:47] LABS: ALBUMIN 2.9 G/DL (3.4-5.0); ANION GAP 5 (8-16); BLOOD UREA NITROGEN 15 MG/DL (7-18); BUN/CREATININE RATIO 14.3 (5.4-32.0); CALCIUM 8.1 MG/DL (8.5-10.1); CHLORIDE 100 MMOL/L (99-107); CREATININE 1.05 MG/DL (0.60-1.10); GLUCOSE 111 MG/DL (70-104); MAGNESIUM 1.7 MG/DL (1.5-2.4); SODIUM 134 MMOL/L (135-145); TOTAL CARBON DIOXIDE 29.1 MMOL/L (24-32); eGFR 74 ML/MIN
[2017-12-19 05:49] LABS: POTASSIUM 4.1 MMOL/L (3.5-5.1)
[2017-12-19 06:00] VITALS: BP 123/67
[2017-12-19] MEDS: K and/or MAG REPLACEMENT MC SCH (08:00)
[2017-12-19] MEDS: lactobacillus rhamnosus 10,000 MMU CELLS/CAPSULE PO SCH ×2 (08:10→20:01)
[2017-12-19] MEDS: docusate sod 100mg capsule PO SCH ×2 (08:10→20:01)
[2017-12-19] MEDS: aspirin 325mg tablet, delayed-release (Ecotrin) PO SCH (08:10)
[2017-12-19] MEDS: magnesium Cl slow-release 64mg tablet PO SCH ×2 (08:10→20:01)
[2017-12-19] MEDS: atorvastatin 10mg tablet PO SCH (08:10)
[2017-12-19] MEDS: pantoprazole 40mg Tablet.DR PO SCH (08:10)
[2017-12-19] MEDS: potassium Cl 20 mEq SR tablet PO SCH ×2 (08:10→20:00)
[2017-12-19] MEDS: sulfaSALAZINE 500 MG tablet PO SCH ×2 (08:11→20:01)
[2017-12-19] MEDS: metoprolol tartrate 25mg tablet PO SCH ×2 (08:11→20:01)
[2017-12-19] MEDS: Protein Shake (high protein) 240ml (8oz) cup PO SCH ×3 (08:15→18:00)
[2017-12-19] MEDS ORDERED: magnesium citrate 296ml oral solution PO ONE (08:35)
[2017-12-19 11:00] VITALS: BP 117/73
[2017-12-19 15:00] VITALS: BP 93/61
[2017-12-19 18:00] VITALS: BP 119/72
[2017-12-19] MEDS: ketorolac trometh. 30mg/ml inj. IV PRN (21:30)
[2017-12-19 22:00] VITALS: BP 102/60
[2017-12-20 02:00] VITALS: BP 102/56
[2017-12-20] MEDS: HYDROcodone/acetaminophen 10/325mg tab PO PRN ×3 (05:24→19:33)
[2017-12-20 05:49] LABS: BASOPHILS % (AUTO) 0.3 % (0-1); EOSINOPHILS # (AUTO) 0.1 X10'3 (0-0.9); EOSINOPHILS % (AUTO) 1.2 % (0-6); HEMATOCRIT 28.8 % (42.0-52.0); LYMPHOCYTES # (AUTO) 0.7 X10'3 (1.1-4.8); LYMPHOCYTES % (AUTO) 13.1 % (21-51); MEAN CORPUSCULAR HEMOGLOBIN 32.6 PG (27.0-31.0); MEAN CORPUSCULAR HGB CONC 34.7 % (33.0-36.5); MEAN CORPUSCULAR VOLUME 93.9 FL (78-98); MONOCYTES # (AUTO) 0.7 X10'3 (0-0.9); MONOCYTES % (AUTO) 12.5 % (2-12); NEUTROPHILS # (AUTO) 4.1 X10'3 (1.8-7.7); NEUTROPHILS % (AUTO) 72.9 % (42-75); PLATELET COUNT 182 X10'3 (140-440); RED BLOOD COUNT 3.07 X10'6 (4.70-6.10); RED CELL DISTRIBUTION WIDTH 13.6 % (11.5-14.5); WHITE BLOOD COUNT 5.7 X10'3 (4.5-11.0)
[2017-12-20 06:24] LABS: ALBUMIN 2.8 G/DL (3.4-5.0); ANION GAP 5 (8-16); BLOOD UREA NITROGEN 15 MG/DL (7-18); BUN/CREATININE RATIO 14.7 (5.4-32.0); CALCIUM 8.2 MG/DL (8.5-10.1); CHLORIDE 102 MMOL/L (99-107); CREATININE 1.02 MG/DL (0.60-1.10); GLUCOSE 103 MG/DL (70-104); POTASSIUM 4.3 MMOL/L (3.5-5.1); SODIUM 138 MMOL/L (135-145); TOTAL CARBON DIOXIDE 30.7 MMOL/L (24-32); eGFR 76 ML/MIN
[2017-12-20] MEDS: sulfaSALAZINE 500 MG tablet PO SCH ×2 (07:28→19:52)
[2017-12-20] MEDS: atorvastatin 10mg tablet PO SCH (07:28)
[2017-12-20] MEDS: docusate sod 100mg capsule PO SCH ×2 (07:28→19:53)
[2017-12-20] MEDS: metoprolol tartrate 25mg tablet PO SCH ×2 (07:28→19:53)
[2017-12-20] MEDS: lactobacillus rhamnosus 10,000 MMU CELLS/CAPSULE PO SCH ×2 (07:28→19:53)
[2017-12-20] MEDS: aspirin 325mg tablet, delayed-release (Ecotrin) PO SCH (07:28)
[2017-12-20] MEDS: pantoprazole 40mg Tablet.DR PO SCH (07:28)
[2017-12-20] MEDS: potassium Cl 20 mEq SR tablet PO SCH ×2 (07:28→19:53)
[2017-12-20] MEDS: magnesium Cl slow-release 64mg tablet PO SCH ×2 (07:28→19:53)
[2017-12-20] MEDS: Protein Shake (high protein) 240ml (8oz) cup PO SCH ×3 (08:00→18:27)
[2017-12-20] MEDS: K and/or MAG REPLACEMENT MC SCH (08:00)
[2017-12-20 08:42] VITALS: BP 112/55
[2017-12-20 16:42] VITALS: BP 129/79
[2017-12-20 19:00] VITALS: BP 118/78
[2017-12-20 23:00] VITALS: BP 103/61
[2017-12-21 03:00] VITALS: BP 117/69
[2017-12-21] MEDS: HYDROcodone/acetaminophen 10/325mg tab PO PRN (03:21)
[2017-12-21 05:28] LABS: BASOPHILS % (AUTO) 0.6 % (0-1); EOSINOPHILS # (AUTO) 0.1 X10'3 (0-0.9); EOSINOPHILS % (AUTO) 2.3 % (0-6); HEMATOCRIT 29.4 % (42.0-52.0); HEMOGLOBIN 10.1 g/dl (14.0-17.9); LYMPHOCYTES # (AUTO) 0.8 X10'3 (1.1-4.8); LYMPHOCYTES % (AUTO) 15.6 % (21-51); MEAN CORPUSCULAR HEMOGLOBIN 32.5 PG (27.0-31.0); MEAN CORPUSCULAR HGB CONC 34.5 % (33.0-36.5); MEAN CORPUSCULAR VOLUME 94.2 FL (78-98); MEAN PLATELET VOLUME 6.7 FL (7.4-10.4); MONOCYTES # (AUTO) 0.7 X10'3 (0-0.9); MONOCYTES % (AUTO) 13.1 % (2-12); NEUTROPHILS # (AUTO) 3.4 X10'3 (1.8-7.7); NEUTROPHILS % (AUTO) 68.4 % (42-75); PLATELET COUNT 227 X10'3 (140-440); RED BLOOD COUNT 3.12 X10'6 (4.70-6.10); RED CELL DISTRIBUTION WIDTH 13.5 % (11.5-14.5)
[2017-12-21] MEDS ORDERED: HYDROcodone/acetaminophen 5mg/325mg tablet PO PRN (05:55)
[2017-12-21 06:00] VITALS: BP 122/59
[2017-12-21 06:01] LABS: ALBUMIN 2.8 G/DL (3.4-5.0); ANION GAP 9 (8-16); BLOOD UREA NITROGEN 10 MG/DL (7-18); BUN/CREATININE RATIO 9.7 (5.4-32.0); CALCIUM 8.4 MG/DL (8.5-10.1); CHLORIDE 102 MMOL/L (99-107); CREATININE 1.03 MG/DL (0.60-1.10); GLUCOSE 104 MG/DL (70-104); MAGNESIUM 1.8 MG/DL (1.5-2.4); POTASSIUM 4.3 MMOL/L (3.5-5.1); SODIUM 139 MMOL/L (135-145); TOTAL CARBON DIOXIDE 28.4 MMOL/L (24-32); eGFR 76 ML/MIN
[2017-12-21] MEDS: metoprolol tartrate 25mg tablet PO SCH (07:59)
[2017-12-21] MEDS: pantoprazole 40mg Tablet.DR PO SCH (07:59)
[2017-12-21] MEDS: atorvastatin 10mg tablet PO SCH (08:00)
[2017-12-21] MEDS: magnesium Cl slow-release 64mg tablet PO SCH (08:00)
[2017-12-21] MEDS: aspirin 325mg tablet, delayed-release (Ecotrin) PO SCH (08:00)
[2017-12-21] MEDS: docusate sod 100mg capsule PO SCH (08:00)
[2017-12-21] MEDS: lactobacillus rhamnosus 10,000 MMU CELLS/CAPSULE PO SCH (08:00)
[2017-12-21] MEDS: potassium Cl 20 mEq SR tablet PO SCH (08:00)
[2017-12-21] MEDS: sulfaSALAZINE 500 MG tablet PO SCH (08:01)
[2017-12-21] MEDS ORDERED: ASPI-41 PO (09:14)
[2017-12-21] MEDS ORDERED: ATOR10TA PO (09:14)
[2017-12-21] MEDS ORDERED: HYDR-569 PO (09:14)
[2017-12-21] MEDS ORDERED: METO25TA6 PO (09:14)
[2017-12-21] MEDS ORDERED: COL100C PO (09:14)
== END 2017-12-21 11:40 | disposition home or self-care (01) | DRG 234 ==
LOC: ER 04:56 → ED HOLD 08:17 → PCU 3S 09:15 → PACU 12-16 10:50 → CICU 2S 12-16 14:31 → PCU 3S 12-18 15:15
PROVIDERS: ADMIT Emergency Medicine; ATTEND Thoracic Surgery (Cardiothoracic Vascular Surgery)
PROC: 4A023N7 Measurement of Cardiac Sampling and Pressure, Left Heart, Percutaneous Approach (ICD-10-PCS; principal; 2017-12-12)
PROC: B2111ZZ Fluoroscopy of Multiple Coronary Arteries using Low Osmolar Contrast (ICD-10-PCS; 2017-12-12)
PROC: B2151ZZ Fluoroscopy of Left Heart using Low Osmolar Contrast (ICD-10-PCS; 2017-12-12)
PROC: 02100Z9 Bypass Coronary Artery, One Artery from Left Internal Mammary, Open Approach (ICD-10-PCS; 2017-12-16)
PROC: 02100Z8 Bypass Coronary Artery, One Artery from Right Internal Mammary, Open Approach (ICD-10-PCS; 2017-12-16)
PROC: 021109W Bypass Coronary Artery, Two Arteries from Aorta with Autologous Venous Tissue, Open Approach (ICD-10-PCS; 2017-12-16)
PROC: 06BQ4ZZ Excision of Left Saphenous Vein, Percutaneous Endoscopic Approach (ICD-10-PCS; 2017-12-16)
PROC: B24BZZ4 Ultrasonography of Heart with Aorta, Transesophageal (ICD-10-PCS; 2017-12-16)
PROC: 02HV33Z Insertion of Infusion Device into Superior Vena Cava, Percutaneous Approach (ICD-10-PCS; 2017-12-16)
DX: I21.4 Non-ST elevation (NSTEMI) myocardial infarction (principal); K51.90 Ulcerative colitis, unspecified, without complications; I25.110 Atherosclerotic heart disease of native coronary artery with unstable angina pectoris; I10 Essential (primary) hypertension; I48.0 Paroxysmal atrial fibrillation; E78.5 Hyperlipidemia, unspecified; K21.9 Gastro-esophageal reflux disease without esophagitis; Z79.01 Long term (current) use of anticoagulants; Z79.899 Other long term (current) drug therapy
CPT/HCPCS: 93306; 93312; 93325; 93458; 96374; 99285; Z7506; Z7508; 36415; 36600; 71045; 71046; 80048; 80053; 80061; 82330; 82435; 82803; 82947; 82948; 83036; 83735; 84100; 84132; 84295; 84484; 85018; 85025; 85384; 85610; 85730; 86870; 86885; 86900; 86901; 86902; 86905; 86922; 87070; 93005; 93880; 93971; 94002; 94010; 94668; 94760; 97110; 97116; 97162; 97530; 99152; 99153; A4620; A6196; A6213; A6255; A6257; A6258; A6449; A7000; A7048; C1760; C1769; J0171; J0690; J1265; J1644; J1815; J1885; J2001; J2060; J2250; J2270; J2440; J2704; J2795; J3010; J3246; J3370; J3475; J3480; J3490; J7030; J7120; P9045; Q9967